=== PATIENT | female | born 1970 | race Caucasian/White ===

== ENCOUNTER 2018-02-12 15:20 | Inpatient (IN) | payer MEDICARE, OTHER ==
[2018-02-12] MEDS ORDERED: methylPREDNISolone SOD SUCCI 125 MG/2 ML VIAL IV STA ×2 (15:28→15:29)
[2018-02-12] MEDS ORDERED: IPRATROPIUM-ALBUTEROL 3 ML NEB INHALATION STA ×3 (15:28→15:43)
[2018-02-12] MEDS ORDERED: MAGNESIUM SULFATE-D5W PMX 1 GM in DEXTROSE/WATER 1 100ML.BAG IVPB STA (15:28)
[2018-02-12] MEDS ORDERED: SODIUM CHLORIDE 0.9% 1,000 ML IV STA (15:28)
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
[2018-02-12] MEDS ORDERED: diphenhydrAMINE 50 MG/ML 1 ML VIAL IVP STA (15:47)
[2018-02-12 15:58] LABS: Basophils # (A) 0.1 k/uL (0-0.2); Basophils % (A) 0 %; Eosinophils # (A) 0.2 k/uL (0-0.7); Eosinophils % (A) 1 %; HCT 44.8 % (34.0-46.0); HGB 14.6 gm/dL (11.4-16.0); Lymphocytes # (A) 2.3 k/uL (1.0-4.8); Lymphocytes % (A) 14 %; MCH 29.7 pg (25.0-35.0); MCHC 32.7 g/dL (31.0-37.0); MCV 90.7 fL (80.0-100.0); Mean Platelet Volume 7.4; Monocytes # (A) 1.1 k/uL (0-1.0); Monocytes % (A) 6 %; Neutrophils % (A) 77 %; Platelet Count 242 k/uL (150-450); RBC 4.93 m/uL (3.80-5.40); RDW 14.2 % (11.5-15.5)
[2018-02-12 16:13] LABS: INR 0.9 (<1.2); Partial Thromboplastin Time 21.9 sec (22.0-30.0); Prothrombin Time 9.8 sec (9.0-12.0)
[2018-02-12 16:14] LABS: Albumin 4.1 g/dL (3.5-5.0); Calcium 9.7 mg/dL (8.4-10.2); Creatine Kinase 257 U/L (30-135); Potassium 4.1 mmol/L (3.5-5.1); Total Bilirubin 0.3 mg/dL (0.2-1.3); Total Protein 6.9 g/dL (6.3-8.2)
[2018-02-12 16:26] LABS: Creatine Kinase MB 7.2 ng/mL (0.0-2.4); Troponin I <0.012 ng/mL (0.000-0.034)
[2018-02-12] MEDS ORDERED: HEPARIN SODIUM,PORCINE 5,000 UNIT/ML 1 ML VIAL IV STA (17:29)
[2018-02-12] MEDS ORDERED: LORazepam 2 MG/ML INJ IV STA ×2 (17:39→20:55)
[2018-02-12] MEDS ORDERED: KETOROLAC 30 MG/ML 1 ML VIAL IVP STA (17:40)
--- NOTE | 2018-02-12 17:48 | XR ---
EXAMINATION TYPE: XR chest 2V DATE OF EXAM: 02/12/2018 COMPARISON: 11/27/2016 HISTORY: 48-year-old female shortness of breath, difficulty breathing TECHNIQUE: PA and lateral views FINDINGS: The heart is normal size. Aorta and pulmonary vasculature within normal limits. Mild interstitial pro minence is unchanged. Calcified granuloma redemonstrated posterior right midlung IMPRESSION: Prior granulomatous disease. Chronic changes without acute cardiopulmonary process.
[2018-02-12] MEDS ORDERED: ACETAMINOPHEN TAB 325 MG TAB PO PRN (18:20)
[2018-02-12] MEDS ORDERED: NALOXONE 0.4 MG/ML 1 ML VIAL IV PRN (18:20)
[2018-02-12] MEDS ORDERED: AZITHROMYCIN 500 MG in SODIUM CHLORIDE 0.9% 250 ML IVPB STA (18:26)
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
[2018-02-12] MEDS: IPRATROPIUM-ALBUTEROL 3 ML NEB INHALATION SCH (20:16)
[2018-02-12] MEDS: methylPREDNISolone SOD SUCCI 125 MG/2 ML VIAL IV SCH ×2 (20:32→22:57)
[2018-02-12] MEDS: SODIUM CHLORIDE 0.9% 1,000 ML IV SCH (20:35)
[2018-02-12] MEDS: HEPARIN SOD,PORK IN 0.45% NACL 25,000 UNIT in 0.45% NACL 1 250ML.BAG IV SCH (20:39)
[2018-02-12] MEDS: MORPHINE SULFATE 2 MG/ML SYRINGE IVP PRN (21:08)
[2018-02-12] MEDS: FLUTICASONE 50MCG/SPRAY NASAL 16GM EA NOSTRIL SCH (22:50)
[2018-02-12] MEDS: LORATADINE 10 MG TAB PO SCH (22:56)
[2018-02-12] MEDS: MONTELUKAST 10 MG TAB PO SCH (22:57)
[2018-02-12 23:25] VITALS: BMI 29.0
[2018-02-13] MEDS: IPRATROPIUM-ALBUTEROL 3 ML NEB INHALATION SCH ×6 (00:42→20:19)
[2018-02-13] MEDS: ALPRAZolam 0.5 MG TAB PO PRN ×3 (01:10→08:31)
[2018-02-13] MEDS: MORPHINE SULFATE 2 MG/ML SYRINGE IVP PRN ×7 (01:11→22:55)
[2018-02-13] MEDS ORDERED: ALBUTEROL NEBULIZED 2.5 MG/3 ML INHALATION STA (01:34)
[2018-02-13] MEDS ORDERED: IPRATROPIUM 0.5 MG/2.5 ML NEBU INHALATION STA (01:35)
[2018-02-13 04:46] LABS: Glucose,Whole Blood 182 mg/dL (75-99)
[2018-02-13] MEDS: INSULIN ASPART 100 UNIT/ML 1 ML 10 ML VIAL SQ SCH ×4 (06:07→20:21)
[2018-02-13] MEDS: methylPREDNISolone SOD SUCCI 125 MG/2 ML VIAL IV SCH ×4 (06:08→22:56)
[2018-02-13] MEDS: SODIUM CHLORIDE 0.9% 1,000 ML IV SCH ×3 (06:11→22:55)
[2018-02-13] MEDS: traMADol 50 MG TAB PO PRN ×3 (08:46→21:06)
[2018-02-13 08:49] LABS: ABG Base Excess -6.6 mmol/L; ABG HCO3 20 mmol/L (21-25); ABG Oxygen Saturation 99.5 % (94-97); ABG PCO2 39 mmHg (35-45); ABG PH 7.31 (7.35-7.45); ABG PO2 120 mmHg (83-108); ABG TCO2 21 mmol/L (19-24)
--- NOTE | 2018-02-13 09:11 | XR ---
EXAMINATION TYPE: XR chest 1V portable DATE OF EXAM: 02/13/2018 Comparison: 02/12/2018 Clinical History: 48-year-old female shortness of breath, difficulty in breathing Findings: Heart upper limits of normal in size. Mild interstitial prominence. Calcified granuloma right upper t o mid lung. No consolidation or sizable effusion. Impression: Borderline heart size, possibly accentuated due to AP technique. Chronic changes, possible underlying COPD. Prior granulomatous disease. No acute change seen.
[2018-02-13] MEDS: FLUTICASONE 50MCG/SPRAY NASAL 16GM EA NOSTRIL SCH ×2 (09:56→21:07)
[2018-02-13] MEDS: AZITHROMYCIN 250 MG TAB PO SCH (09:56)
[2018-02-13] MEDS: LISINOPRIL-HCTZ 20-25 MG 1 EACH TAB PO SCH (09:56)
[2018-02-13] MEDS: LORATADINE 10 MG TAB PO SCH (09:56)
[2018-02-13 10:20] LABS: HCT 43.6 % (34.0-46.0); MCH 29.9 pg (25.0-35.0); MCHC 32.2 g/dL (31.0-37.0); MCV 92.9 fL (80.0-100.0); Mean Platelet Volume 8.8; Platelet Count 240 k/uL (150-450); RBC 4.69 m/uL (3.80-5.40); RDW 14.4 % (11.5-15.5); WBC 19.9 k/uL (3.8-10.6)
[2018-02-13 10:48] LABS: Calcium 9.5 mg/dL (8.4-10.2)
[2018-02-13] MEDS: MULTIVITAMINS, THERA 1 EACH TAB PO SCH (11:49)
[2018-02-13 12:09] LABS: Glucose,Whole Blood 144 mg/dL (75-99)
[2018-02-13] MEDS: HEPARIN SOD,PORK IN 0.45% NACL 25,000 UNIT in 0.45% NACL 1 250ML.BAG IV SCH ×2 (12:50→22:55)
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
--- NOTE | 2018-02-13 14:54 | P.PN ---
Subjective Progress Note Date: 02/13/18 (delayed charting seen at 0830) Principal diagnosis: Shortness of breath Patient is a 48-year-old female with a history of severe ALLERGIC asthma, prior aspergillosis and legionnaires disease, closed head injury 2, and hypertension who presented to the ER with complaints of shortness of breath. She does have a history of prior intubation for acute exacerbation of asthma 2017. In the ER she shortness of breath. She received multiple breathing treatments, IV Solu-Medrol, and pain medications without improvement. Therefore requested admission. Initial vital signs showed persistent tachycardia. Initial laboratory analysis showed an elevated white blood cell count at 17. Her d-dimer was slightly elevated at 0.88 however creatinine is 1.06. There was concern about exposing her to contrast dye with her history of chronic kidney disease. She is placed on a heparin drip and a VQ scan has been ordered. Arrangements were made for admission. She was admitted to the [facility] care for her. On the morning of 02/13 she again developed significant shortness breath. She was placed on BiPAP. I ordered a stat ABG which was normal. BiPAP was held. She is given a dose of morphine and Xanax. Patient seen and examined at bedside. BiPAP is on and she is crying she can't handle BiPAP. We assessed her ABG which was normal. Patient states she is anxious. She is complaining of rib pain. She received a dose of morphine and Xanax was in route to see patient. She is feeling anxious. She is requesting morphine with the Benadryl or Vistaril as a chaser. Discussed using tramadol to help with her pain and she just received an IV dose of pain medications as well as Banex. She tells me that tramadol is an anti-psychotic and not pain. I reassured her that this medication is indicated for pain and does not have an indication for psychiatric use. I have encouraged her to use the tramadol. She also states that she cannot take hydrocodone as it makes her nauseous in the oral version but she needs IV hydrocodone. We discussed no additional IV pain medications at this time, as she received IV morphine and I do not want to risk respiratory depression at this point in time. I have also tried to talk with her about calling down to decrease her breathing. Patient appears dyspneic however when she talks her wheezing resolved and her dyspnea drastically improves. Then when she stops talking becomes anxious again her dyspnea worsens. I told her we will consult pulmonary continue her current treatments Objective - Vital Signs Vital signs: Vital Signs Temp 96.5 F L 02/13/18 08:20 Pulse 106 H 02/13/18 12:00 Resp 28 H 02/13/18 12:00 BP 157/70 02/13/18 12:00 Pulse Ox 97 02/13/18 12:00 Intake & Output 02/12/18 02/13/18 02/13/18 18:59 06:59 18:59 Intake Total 946.568 229.947 Output Total 250 300 Balance 696.568 -70.053 Weight 81.647 kg 78 kg Intake: Intake, IV Titration 706.568 129.947 Amount Azithromycin 500 mg In 250 Sodium Chloride 0.9% 250 ml @ 250 mls/hr IVPB ONCE STA Rx#:[id number] Heparin Sod,Pork in 0.45% 136.568 129.947 NaCl 25,000 unit In 0.45 % NaCl 1 250ml.bag @ 18 UNITS/KG/HR 14.69 mls/hr IV .Q17H2M [facility] Rx#: [id number] Sodium Chloride 0.9% 1, 320 000 ml @ 80 mls/hr IV . [id number] [facility] Rx#:[id number] Oral 240 100 Output: Urine 250 300 Other: Voiding Method Diaper Diaper - Exam General: non toxic, moderate distress, appears at stated age Derm: warm, dry Head: atraumatic, normocephalic, symmetric Eyes: EOMI, no lid lag, anicteric sclera Mouth: no lip lesion, mucus membranes moist Cardiovascular: S1S2 reg, no murmur, positive posterior tibial pulse bilateral, Lungs: upper airway wheeze b/l with r apex wheeze, no rhonchi, no rales , + accessory muscle use Abdominal: soft, nontender to palpation, no guarding, no appreciable organomegaly Ext: no gross muscle atrophy, no edema, no contractures Neuro: CN II-XI grossly intact, no focal neuro deficits Psych: Alert, oriented, anxious and tearful - Labs CBC & Chem 7: 02/13/18 08:59 02/13/18 08:59 Labs: Abnormal Lab Results - Last 24 Hours (Table) 02/12/18 02/12/18 02/12/18 Range/Units 15:45 15:45 15:45 WBC 17.0 H (3.8-10.6) k/uL Neutrophils # 13.0 H (1.3-7.7) k/uL Monocytes # 1.1 H (0-1.0) k/uL APTT (22.0-30.0) sec D-Dimer (<0.60) mg/L FEU ABG pH (7.35-7.45) ABG pO2 (83-108) mmHg ABG HCO3 (21-25) mmol/L ABG O2 Saturation (94-97) % Chloride 110 H (98-107) mmol/L Carbon Dioxide (22-30) mmol/L BUN 21 H (7-17) mg/dL Creatinine 1.06 H (0.52-1.04) mg/dL Glucose 105 H (74-99) mg/dL POC Glucose (mg/dL) (75-99) mg/dL Total Creatine Kinase 257 H (30-135) U/L CK-MB (CK-2) 7.2 H (0.0-2.4) ng/mL 02/12/18 02/12/18 02/13/18 Range/Units 15:45 15:45 01:54 WBC (3.8-10.6) k/uL Neutrophils # (1.3-7.7) k/uL Monocytes # (0-1.0) k/uL APTT 21.9 L 91.8 H (22.0-30.0) sec D-Dimer 0.88 H (<0.60) mg/L FEU ABG pH (7.35-7.45) ABG pO2 (83-108) mmHg ABG HCO3 (21-25) mmol/L ABG O2 Saturation (94-97) % Chloride (98-107) mmol/L Carbon Dioxide (22-30) mmol/L BUN (7-17) mg/dL Creatinine (0.52-1.04) mg/dL Glucose (74-99) mg/dL POC Glucose (mg/dL) (75-99) mg/dL Total Creatine Kinase (30-135) U/L CK-MB (CK-2) (0.0-2.4) ng/mL 02/13/18 02/13/18 02/13/18 Range/Units 04:45 08:44 08:59 WBC 19.9 H (3.8-10.6) k/uL Neutrophils # (1.3-7.7) k/uL Monocytes # (0-1.0) k/uL APTT (22.0-30.0) sec D-Dimer (<0.60) mg/L FEU ABG pH 7.31 L (7.35-7.45) ABG pO2 120 H (83-108) mmHg ABG HCO3 20 L (21-25) mmol/L ABG O2 Saturation 99.5 H (94-97) % Chloride (98-107) mmol/L Carbon Dioxide (22-30) mmol/L BUN (7-17) mg/dL Creatinine (0.52-1.04) mg/dL Glucose (74-99) mg/dL POC Glucose (mg/dL) 182 H (75-99) mg/dL Total Creatine Kinase (30-135) U/L CK-MB (CK-2) (0.0-2.4) ng/mL 02/13/18 02/13/18 02/13/18 Range/Units 08:59 08:59 11:47 WBC (3.8-10.6) k/uL Neutrophils # (1.3-7.7) k/uL Monocytes # (0-1.0) k/uL APTT 65.3 H (22.0-30.0) sec D-Dimer (<0.60) mg/L FEU ABG pH (7.35-7.45) ABG pO2 (83-108) mmHg ABG HCO3 (21-25) mmol/L ABG O2 Saturation (94-97) % Chloride (98-107) mmol/L Carbon Dioxide 16 L (22-30) mmol/L BUN 20 H (7-17) mg/dL Creatinine 1.24 H (0.52-1.04) mg/dL Glucose 117 H (74-99) mg/dL POC Glucose (mg/dL) 144 H (75-99) mg/dL Total Creatine Kinase (30-135) U/L CK-MB (CK-2) (0.0-2.4) ng/mL Assessment and Plan Assessment: Acute exacerbation of asthma with acute respiratory failure and acute bronchitis - bronchodilators, steroids, pulm hygiene - pulm recs appreciated - flonase, claritin - s/p magnesium - CXR with no acute process, ABD within normal Costochondiritis - morphine, tramadol, adverse reaction to norco Acute anxiety - prn xanax TID Leukocytosis - repeat in AM - Maybe due to recent steroids - procalcitonin pending - zithromax for bronchitis coverage SIRS -Due to respiratory failure, no sign of clinical sepsis -Check procalcitonin Eelvated d-dimer - heparin gtt - VQ scan avoid CTA with hx of Contrast induced nephropathy CKD II/III - Cr at bseline - avoid nephrotoxic agents - repeat BMP in AM HTN urgency, resolved, HTN - follow BP - Continue home lisinopril/HCTZ Over weight BMI 29.1 - outpatient weight loss DVT prophylaxis: Heparin gtt Discussed with: Patient, nursing, Kandice Gilbert Anticipated discharge date: 1-[address]: home A total of 35 minutes was spent on the care of this complex patient more than 50 % of the time was spent in counseling and care coordination.
[2018-02-13] MEDS: ALPRAZolam 1 MG TAB PO PRN ×2 (15:23→20:20)
[2018-02-13] MEDS: ALBUTEROL NEBULIZED 2.5 MG/3 ML INHALATION PRN (17:35)
[2018-02-13 17:54] LABS: Glucose,Whole Blood 119 mg/dL (75-99)
[2018-02-13] MEDS: MONTELUKAST 10 MG TAB PO SCH (20:20)
[2018-02-13] MEDS: MELATONIN 3 MG TABLET PO PRN (21:07)
[2018-02-14] MEDS: IPRATROPIUM-ALBUTEROL 3 ML NEB INHALATION SCH ×7 (00:26→23:31)
[2018-02-14] MEDS: MORPHINE SULFATE 2 MG/ML SYRINGE IVP PRN ×6 (02:49→23:25)
[2018-02-14] MEDS: traMADol 50 MG TAB PO PRN ×3 (02:50→20:28)
[2018-02-14] MEDS: ALPRAZolam 1 MG TAB PO PRN ×3 (03:59→21:28)
[2018-02-14] MEDS: INSULIN ASPART 100 UNIT/ML 1 ML 10 ML VIAL SQ SCH ×4 (05:41→21:20)
[2018-02-14 06:16] LABS: HCT 41.7 % (34.0-46.0); HGB 12.9 gm/dL (11.4-16.0); Hypochromasia Slight; MCH 29.2 pg (25.0-35.0); MCV 94.1 fL (80.0-100.0); Mean Platelet Volume 7.5; Platelet Count 224 k/uL (150-450); RBC 4.43 m/uL (3.80-5.40); RDW 14.3 % (11.5-15.5); WBC 24.6 k/uL (3.8-10.6)
[2018-02-14 06:26] LABS: Calcium 9.6 mg/dL (8.4-10.2)
[2018-02-14 06:30] LABS: Magnesium 2.1 mg/dL (1.6-2.3); Potassium 4.5 mmol/L (3.5-5.1)
[2018-02-14] MEDS: methylPREDNISolone SOD SUCCI 125 MG/2 ML VIAL IV SCH ×4 (06:43→23:24)
[2018-02-14] MEDS: SODIUM CHLORIDE 0.9% 1,000 ML IV SCH ×2 (07:29→18:05)
[2018-02-14] MEDS: MULTIVITAMINS, THERA 1 EACH TAB PO SCH (08:43)
[2018-02-14] MEDS: HEPARIN SOD,PORK IN 0.45% NACL 25,000 UNIT in 0.45% NACL 1 250ML.BAG IV SCH (08:44)
[2018-02-14] MEDS: LORATADINE 10 MG TAB PO SCH (08:44)
[2018-02-14] MEDS: FLUTICASONE 50MCG/SPRAY NASAL 16GM EA NOSTRIL SCH ×2 (08:44→23:25)
[2018-02-14] MEDS: LISINOPRIL-HCTZ 20-25 MG 1 EACH TAB PO SCH (08:44)
[2018-02-14] MEDS: AZITHROMYCIN 250 MG TAB PO SCH (08:44)
[2018-02-14 09:55] LABS: Hemoglobin A1C 5.1 % (4.0-6.0)
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
[2018-02-14] MEDS: PANTOPRAZOLE 40 MG TABLET PO SCH (11:09)
[2018-02-14 12:16] LABS: Glucose,Whole Blood 156 mg/dL (75-99)
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
[2018-02-14] MEDS ORDERED: CALCIUM CARBONATE 500 MG CHEWABLE PO PRN (14:00)
--- NOTE | 2018-02-14 15:08 | XR ---
EXAMINATION TYPE: XR chest 1V portable DATE OF EXAM: 02/14/2018 COMPARISON: 02/13/2018 HISTORY: Shortness of breath TECHNIQUE: Single frontal view of the chest is obtained. FINDINGS: There is a nodule in the right upper lobe suggestive of granuloma. Limited inspiration. No consolidation or pneumothorax. No pleural effusion. Heart is within normal limits. No overt failure. Interstitium stable and likely chronic. IMPRESSION: 1. Findings suggestive of right upper lobe granuloma with no evidence of consolidative process.
--- NOTE | 2018-02-14 15:24 | P.PN ---
Progress Note - Text Progress Note Date: 02/14/18 Patient was seen on follow-up today, and she was noted to have a significant wheezing, however the wheezing seems to be mostly transmitted from the area of her neck. And as she was talking to me, the wheezing completely stopped. And her lungs sounded very clear. Then I raised the possibility of vocal cord dysfunction, and I explained to the patient that she needs to be seen by underwear trimmer and should have her vocal cords looked at and evaluated for possible vocal cord dysfunction. Patient became extremely upset, agitated, and was surprised that I'm questioning the diagnosis of asthma. Then she called her admitting physician/hospitalist, and requested another pulmonary opinion. I will gladly sign off the case and no need to follow-up in our office. I did suggest ENT evaluation I also suggested at bedside PFT to be done for further evaluation of her symptoms. We will sign off,, and the hospitalist will consult another dining room attendant to see the patient.
--- NOTE | 2018-02-14 16:46 | NM ---
EXAMINATION TYPE: NM pul vent and perfuse DATE OF EXAM: 02/14/2018 COMPARISON: Chest radiograph of the same date. HISTORY: Dyspnea with elevated d-dimer. TECHNIQUE: Utilizing inhalation of 68.5 mCi Tc 99m DTPA aerosol and intravenous injection of 4.9 mCi of Tc 99m MAA, ventilation and perfusion images are acquired post injection in multiple projections. FINDINGS: Although there is diffuse abnormal radiotracer activity throughout the lungs on the ventilation porti on of examination there is central radiotracer clumping limiting radiotracer dispersion throughout th e lungs and suggesting underlying airway disease. There is slightly prominent fissures on the perfusi on portions of the examination however no focal defects corresponding to pulmonary segments are seen on the perfusion images. IMPRESSION: Low probability for pulmonary embolus. Unremarkable perfusion images however ventilation images are d iffusely abnormal with findings indicating airway disease. Consider bronchitis and/or COPD.
[2018-02-14 17:31] LABS: Glucose,Whole Blood 148 mg/dL (75-99)
[2018-02-14] MEDS: SYMBICORT 160-4.5 MCG INHALER INHALATION SCH (19:56)
[2018-02-14] MEDS: SERTRALINE 25 MG TAB PO SCH (21:28)
[2018-02-14] MEDS: MONTELUKAST 10 MG TAB PO SCH (21:28)
[2018-02-14 21:38] LABS: Glucose,Whole Blood 107 mg/dL (75-99)
[2018-02-15] MEDS: HEPARIN SODIUM,PORCINE 5,000 UNIT/ML 1 ML VIAL SQ SCH ×4 (00:46→23:43)
[2018-02-15] MEDS: ALBUTEROL NEBULIZED 2.5 MG/3 ML INHALATION PRN ×4 (02:27→12:54)
[2018-02-15] MEDS: IPRATROPIUM-ALBUTEROL 3 ML NEB INHALATION SCH ×6 (04:04→23:40)
[2018-02-15] MEDS: SODIUM CHLORIDE 0.9% 1,000 ML IV SCH ×3 (06:08→17:37)
[2018-02-15] MEDS: MORPHINE SULFATE 2 MG/ML SYRINGE IVP PRN ×5 (06:09→23:42)
[2018-02-15] MEDS: methylPREDNISolone SOD SUCCI 125 MG/2 ML VIAL IV SCH ×4 (06:09→23:41)
[2018-02-15] MEDS: SYMBICORT 160-4.5 MCG INHALER INHALATION SCH ×2 (07:24→18:45)
[2018-02-15] MEDS: INSULIN ASPART 100 UNIT/ML 1 ML 10 ML VIAL SQ SCH ×4 (07:31→20:09)
[2018-02-15 07:37] LABS: Glucose,Whole Blood 125 mg/dL (75-99)
[2018-02-15] MEDS: LORATADINE 10 MG TAB PO SCH (08:06)
[2018-02-15] MEDS: PANTOPRAZOLE 40 MG TABLET PO SCH (08:06)
[2018-02-15] MEDS: MULTIVITAMINS, THERA 1 EACH TAB PO SCH (08:06)
[2018-02-15] MEDS: LISINOPRIL-HCTZ 20-25 MG 1 EACH TAB PO SCH (08:06)
[2018-02-15] MEDS: ALPRAZolam 1 MG TAB PO PRN ×3 (08:11→23:42)
[2018-02-15] MEDS: FLUTICASONE 50MCG/SPRAY NASAL 16GM EA NOSTRIL SCH ×2 (09:02→20:09)
[2018-02-15 09:28] LABS: HCT 45.9 % (34.0-46.0); HGB 14.2 gm/dL (11.4-16.0); MCH 29.1 pg (25.0-35.0); MCV 93.6 fL (80.0-100.0); Mean Platelet Volume 7.6; Platelet Count 244 k/uL (150-450); RDW 14.3 % (11.5-15.5); WBC 19.4 k/uL (3.8-10.6)
[2018-02-15 09:39] LABS: Potassium 4.1 mmol/L (3.5-5.1)
[2018-02-15 11:45] LABS: Glucose,Whole Blood 180 mg/dL (75-99)
--- NOTE | 2018-02-15 14:52 | XR ---
EXAMINATION TYPE: XR Hip Complete LT DATE OF EXAM: 02/15/2018 COMPARISON: NONE HISTORY: Pain post fall TECHNIQUE: 2 views submitted FINDINGS: There is no evidence of erosive change or acute fracture. IMPRESSION: 1. No evidence of acute fracture or dislocation.
--- NOTE | 2018-02-15 14:53 | XR ---
EXAMINATION TYPE: XR forearm LT DATE OF EXAM: 02/15/2018 COMPARISON: NONE HISTORY: Pain Two views of the forearm demonstrate that the osseous structures appear to be intact and the joint sp aces appear to be preserved. There is no acute fracture or dislocation. IMPRESSION: 1. No acute fracture or dislocation
--- NOTE | 2018-02-15 14:54 | XR ---
EXAMINATION TYPE: XR wrist limited LT DATE OF EXAM: 02/15/2018 CLINICAL HISTORY: Syncopal episode with fall and subsequent left wrist pain TECHNIQUE: Frontal, lateral and oblique images of the left wrist are obtained. COMPARISON: None FINDINGS: There is no acute fracture/dislocation evident in the left wrist. The joint spaces in the left wrist appear within normal limits. The overlying soft tissue appears unremarkable. External IV is noted dorsally over the metacarpals. IMPRESSION: There is no acute fracture or dislocation in the left wrist.
--- NOTE | 2018-02-15 14:58 | XR ---
EXAMINATION TYPE: XR ribs LT w pa chest xray DATE OF EXAM: 02/15/2018 COMPARISON: NONE HISTORY: Pain post fall TECHNIQUE: Frontal view of the chest and 4 views of the ribs are submitted. FINDINGS: There is a tiny granuloma in the left lower lobe. No acute displaced rib fracture identifie d. The lungs are otherwise clear. IMPRESSION: 1. No acute displaced rib fracture. There is a subtle defect involving the anterior left ninth rib wh ich may represent a hairline nondisplaced fracture. Correlate with point tenderness.
[2018-02-15] MEDS ORDERED: BENZONATATE 100 MG CAP PO PRN (15:40)
[2018-02-15] MEDS: KETOROLAC 30 MG/ML 1 ML VIAL IVP PRN (16:25)
[2018-02-15 17:30] LABS: Glucose,Whole Blood 150 mg/dL (75-99)
[2018-02-15] MEDS: guaiFENesin-DM 100-10MG/5ML 10 ML CUP PO PRN (18:37)
--- NOTE | 2018-02-15 18:49 | P.PN ---
Subjective Progress Note Date: 02/15/18 (delayed charting patient seen at 1030 and 1500) Principal diagnosis: Shortness of breath Patient is a 48-year-old female with a history of severe ALLERGIC asthma, prior aspergillosis and legionnaires disease, closed head injury 2, and hypertension who presented to the ER with complaints of shortness of breath. She does have a history of prior intubation for acute exacerbation of asthma 2017. In the ER she shortness of breath. She received multiple breathing treatments, IV Solu-Medrol, and pain medications without improvement. Therefore requested admission. Initial vital signs showed persistent tachycardia. Initial laboratory analysis showed an elevated white blood cell count at 17. Her d-dimer was slightly elevated at 0.88 however creatinine is 1.06. There was concern about exposing her to contrast dye with her history of chronic kidney disease. She is placed on a heparin drip and a VQ scan has been ordered. Arrangements were made for admission. She was admitted to the [facility] care for her. On the morning of 02/13 she again developed significant shortness breath. She was placed on BiPAP. I ordered a stat ABG which was normal. BiPAP was discontinued. She was given a dose of morphine and Xanax. She had improvement in her wheezing in lungs but still having upper airway wheeze. Initially patient was discharged the morning of 12/16. However she had a fall in the bathroom and increased pain. Patient seen and examined at bedside. Patient still feeling SOB and having increase respiratory rate when anxious. D/W her at length need for ENT follow- up and that she is having upper airway disfunction. She is insistent that she has asthma. We discussed at length that she may have asthma but at this point in time her lungs are clear at the bases that she continues to have an upper airway wheeze. We discussed that this may come from her prolonged cough and postnasal drip. 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 I've encouraged her next time to seek care in [place]. We also discussed having her follow-up with Dr. Moore in the outpatient setting for pulmonology she does not want with Dr. Montgomery. She reports that since experiencing her fall the bathroom she is having left-sided pain is increased under her ribs and she is also having some left-sided hip pain. She requests to continue to be on morphine during her hospitalization. She states that she is not able to go home due to her pain and she will not be able to climb a flight of stairs and her second floor apartment. I did discuss with her that her rib x-ray showed a possible deformity of the head of the ninth rib but did not show any displaced fracture. We'll do it however I'll of Toradol and maintain her morphine at this point in time to help with pain control. She is asking ASA 2 more days. I told her she will likely be discharged in the morning as long as her pain control is adequate. Objective - Vital Signs Vital signs: Vital Signs Temp 97.0 F L 02/15/18 15:00 Pulse 100 02/15/18 15:18 Resp 22 02/15/18 15:00 BP 140/84 02/15/18 15:00 Pulse Ox 94 L 02/15/18 15:00 Intake & Output 02/14/18 02/15/18 02/15/18 18:59 06:59 18:59 Intake Total 822 900 160 Output Total 800 Balance 22 900 160 Intake: IV 160 Sodium Chloride 0.9% 1, 160 000 ml @ 125 mls/hr IV . Q8H [facility] Rx#:[id number] Intake, IV Titration 250 Amount Heparin Sod,Pork in 0.45% 250 NaCl 25,000 unit In 0.45 % NaCl 1 250ml.bag @ 18 UNITS/KG/HR 14.69 mls/hr IV .Q17H2M [facility] Rx#: [id number] Oral 572 900 Output: Urine 800 Other: Voiding Method Diaper Diaper # Voids 1 2 4 - Exam General: non toxic, No distress, appears at stated age Derm: warm, dry Head: atraumatic, normocephalic, symmetric Eyes: EOMI, no lid lag, anicteric sclera Mouth: no lip lesion, mucus membranes moist Cardiovascular: S1S2 reg, no murmur, positive posterior tibial pulse bilateral, Lungs: faint wheeze right base, no rhonchi, no rales , no accessory muscle use, pain to palpation left rib cage and left hip Abdominal: soft, nontender to palpation, no guarding, no appreciable organomegaly Ext: no gross muscle atrophy, no edema, no contractures Neuro: CN II-XI grossly intact, no focal neuro deficits Psych: Alert, oriented, anxious,tearful - Labs CBC & Chem 7: 02/15/18 08:50 02/15/18 08:50 Labs: Abnormal Lab Results - Last 24 Hours (Table) 02/14/18 02/15/18 02/15/18 Range/Units 21:08 07:35 08:50 WBC 19.4 H (3.8-10.6) k/uL BUN (7-17) mg/dL Creatinine (0.52-1.04) mg/dL Glucose (74-99) mg/dL POC Glucose (mg/dL) 107 H 125 H (75-99) mg/dL 02/15/18 02/15/18 02/15/18 Range/Units 08:50 11:37 17:28 WBC (3.8-10.6) k/uL BUN 34 H (7-17) mg/dL Creatinine 1.32 H (0.52-1.04) mg/dL Glucose 117 H (74-99) mg/dL POC Glucose (mg/dL) 180 H 150 H (75-99) mg/dL Microbiology - Last 24 Hours (Table) 02/12/18 15:45 Blood Culture - Preliminary Blood No Growth after 72 hours 02/12/18 22:20 Blood Culture - Preliminary Blood No Growth after 48 hours Assessment and Plan Assessment: Acute exacerbation of asthma with acute respiratory failure - bronchodilators, steroids, pulm hygiene - pulm recs appreciated - flonase, claritin - s/p magnesium - CXR with no acute process, ABD within normal - need ENT eval for vocal cord dysfunction Possible left rib fracture - toradol in additional to morphine an zanaflex Fall - fall precautions Costochondiritis - morphine, tramadol, adverse reaction to norco, zanaflex Acute anxiety and depression - psych recs appreciated - zoloft at night Leukocytosis, improving - Maybe due to recent steroids - procalcitonin negative SIRS -Due to respiratory failure, no sign of clinical sepsis -Check procalcitonin CKD II/III - Cr at bseline - avoid nephrotoxic agents - repeat BMP in AM HTN urgency, resolved, HTN - follow BP - Continue home lisinopril/HCTZ Over weight BMI 29.1 - outpatient weight loss DVT prophylaxis: Heparin gtt Discussed with: Patient, nursing Anticipated discharge date: home in AM Anticipated discharge place: home A total of 35 minutes was spent on the care of this complex patient more than 50 % of the time was spent in counseling and care coordination.
[2018-02-15] MEDS: SERTRALINE 25 MG TAB PO SCH (19:46)
[2018-02-15] MEDS: MELATONIN 3 MG TABLET PO PRN (19:46)
[2018-02-15] MEDS: MONTELUKAST 10 MG TAB PO SCH (19:46)
[2018-02-16] MEDS: SODIUM CHLORIDE 0.9% 1,000 ML IV SCH ×3 (02:14→15:57)
[2018-02-16] MEDS: IPRATROPIUM-ALBUTEROL 3 ML NEB INHALATION SCH ×5 (03:28→20:11)
[2018-02-16] MEDS: MORPHINE SULFATE 2 MG/ML SYRINGE IVP PRN ×5 (03:50→20:30)
[2018-02-16] MEDS: methylPREDNISolone SOD SUCCI 125 MG/2 ML VIAL IV SCH (05:51)
[2018-02-16 07:05] LABS: Glucose,Whole Blood 135 mg/dL (75-99)
[2018-02-16] MEDS: guaiFENesin-DM 100-10MG/5ML 10 ML CUP PO PRN (08:10)
[2018-02-16] MEDS: HEPARIN SODIUM,PORCINE 5,000 UNIT/ML 1 ML VIAL SQ SCH ×3 (08:10→23:28)
[2018-02-16] MEDS: ALPRAZolam 1 MG TAB PO PRN ×3 (08:10→21:17)
[2018-02-16] MEDS: PANTOPRAZOLE 40 MG TABLET PO SCH (08:10)
[2018-02-16] MEDS: LISINOPRIL-HCTZ 20-25 MG 1 EACH TAB PO SCH (08:10)
[2018-02-16] MEDS: LORATADINE 10 MG TAB PO SCH (08:10)
[2018-02-16] MEDS: INSULIN ASPART 100 UNIT/ML 1 ML 10 ML VIAL SQ SCH ×4 (08:11→21:17)
[2018-02-16] MEDS: SYMBICORT 160-4.5 MCG INHALER INHALATION SCH ×2 (08:40→20:11)
[2018-02-16] MEDS: FLUTICASONE 50MCG/SPRAY NASAL 16GM EA NOSTRIL SCH ×2 (09:23→21:17)
[2018-02-16 11:29] LABS: Glucose,Whole Blood 232 mg/dL (75-99)
[2018-02-16] MEDS: POLYETHYLENE GLYCOL 3350 17 GM POWD.PACK PO SCH (12:10)
[2018-02-16] MEDS: MULTIVITAMINS, THERA 1 EACH TAB PO SCH (12:10)
[2018-02-16] MEDS: predniSONE 20 MG TAB PO SCH (12:10)
[2018-02-16 17:15] LABS: Glucose,Whole Blood 100 mg/dL (75-99)
--- NOTE | 2018-02-16 19:20 | P.PN ---
Subjective Progress Note Date: 02/16/18 Principal diagnosis: Shortness of breath Patient is a 48-year-old female with a history of severe ALLERGIC asthma, prior aspergillosis and legionnaires disease, closed head injury 2, and hypertension who presented to the ER with complaints of shortness of breath. She does have a history of prior intubation for acute exacerbation of asthma 2017. In the ER she shortness of breath. She received multiple breathing treatments, IV Solu-Medrol, and pain medications without improvement. Therefore requested admission. Initial vital signs showed persistent tachycardia. Initial laboratory analysis showed an elevated white blood cell count at 17. Her d-dimer was slightly elevated at 0.88 however creatinine is 1.06. There was concern about exposing her to contrast dye with her history of chronic kidney disease. She is placed on a heparin drip and a VQ scan has been ordered. Arrangements were made for admission. She was admitted to the [facility] care for her. On the morning of 02/13 she again developed significant shortness breath. She was placed on BiPAP. I ordered a stat ABG which was normal. BiPAP was discontinued. She was given a dose of morphine and Xanax. She had improvement in her wheezing in lungs but still having upper airway wheeze. Initially patient was discharged the morning of 12/16. However she had a fall in the bathroom and increased pain, possible left rib fracture. Patient seen and examined at bedside. Complains of increased left-sided pain since fall both her chest, hip, and knee. States she is still having wheezing when up and walking around but not at rest. Cough is improved. We discussed starting to transition off of the IV morphine and onto oral tramadol to see if that'll help. She insists that were all will not help but rather take IV morphine throughout the day today and then be discharged home on nothing tomorrow. Discussed that she will likely go tomorrow. Objective - Vital Signs Vital signs: Vital Signs Temp 97.8 F 02/16/18 07:00 Pulse 90 02/16/18 08:50 Resp 18 02/16/18 07:00 BP 135/77 02/16/18 07:00 Pulse Ox 92 L 02/16/18 07:00 Intake & Output 02/15/18 02/16/18 02/16/18 18:59 06:59 18:59 Intake Total 160 500 200 Balance 160 500 200 Intake: IV 160 Sodium Chloride 0.9% 1, 160 000 ml @ 125 mls/hr IV . Q8H [facility] Rx#:[id number] Oral 500 200 Other: Voiding Method Diaper # Voids 4 2 - Exam General: non toxic, No distress, appears at stated age Derm: warm, dry Head: atraumatic, normocephalic, symmetric Eyes: EOMI, no lid lag, anicteric sclera Mouth: no lip lesion, mucus membranes moist Cardiovascular: S1S2 reg, no murmur, positive posterior tibial pulse bilateral, Lungs: faint wheeze b/l base, large upper airway wheeze, no rhonchi, no rales , no accessory muscle use, pain to palpation left rib cage and left hip Abdominal: soft, nontender to palpation, no guarding, no appreciable organomegaly Ext: no gross muscle atrophy, no edema, no contractures Neuro: CN II-XI grossly intact, no focal neuro deficits Psych: Alert, oriented, anxious,tearful - Labs CBC & Chem 7: 02/15/18 08:50 02/15/18 08:50 Labs: Abnormal Lab Results - Last 24 Hours (Table) 02/15/18 02/15/18 02/16/18 Range/Units 11:37 17:28 07:03 POC Glucose (mg/dL) 180 H 150 H 135 H (75-99) mg/dL Microbiology - Last 24 Hours (Table) 02/12/18 22:20 Blood Culture - Preliminary Blood No Growth after 72 hours 02/12/18 15:45 Blood Culture - Preliminary Blood No Growth after 72 hours Assessment and Plan Assessment: Acute exacerbation of asthma with acute respiratory failure - bronchodilators, steroids, pulm hygiene - pulm recs appreciated, patient does not want to see Dr. Dowd anymore - flonase, claritin - s/p magnesium - CXR with no acute process, ABD within normal - need ENT eval for vocal cord dysfunctionbas outpatient Possible left rib fracture - toradol in additional to morphine an zanaflex Fall - fall precautions Costochondiritis - morphine, tramadol, adverse reaction to norco, zanaflex Acute anxiety and depression - psych recs appreciated - zoloft at night Leukocytosis, improving - Maybe due to recent steroids - procalcitonin negative CKD II/III - Cr at bseline - avoid nephrotoxic agents - repeat BMP in AM HTN urgency, resolved, HTN - follow BP - Continue home lisinopril/HCTZ Over weight BMI 29.1 - outpatient weight loss DVT prophylaxis: Heparin Discussed with: Patient, nursing Anticipated discharge date: home in AM Anticipated discharge place: home A total of 25 minutes was spent on the care of this complex patient more than 50 % of the time was spent in counseling and care coordination.
[2018-02-16 20:38] LABS: Glucose,Whole Blood 138 mg/dL (75-99)
[2018-02-16] MEDS: MONTELUKAST 10 MG TAB PO SCH (21:17)
[2018-02-16] MEDS: SERTRALINE 25 MG TAB PO SCH (21:17)
[2018-02-16] MEDS: KETOROLAC 30 MG/ML 1 ML VIAL IVP PRN (23:28)
[2018-02-17] MEDS: MORPHINE SULFATE 2 MG/ML SYRINGE IVP PRN ×5 (00:08→20:06)
[2018-02-17] MEDS: IPRATROPIUM-ALBUTEROL 3 ML NEB INHALATION SCH ×7 (00:41→23:13)
[2018-02-17] MEDS: SODIUM CHLORIDE 0.9% 1,000 ML IV SCH (03:38)
[2018-02-17] MEDS: ALPRAZolam 1 MG TAB PO PRN ×3 (04:33→21:21)
[2018-02-17 06:52] LABS: Glucose,Whole Blood 102 mg/dL (75-99)
[2018-02-17] MEDS: SYMBICORT 160-4.5 MCG INHALER INHALATION SCH ×2 (07:19→19:08)
[2018-02-17] MEDS: INSULIN ASPART 100 UNIT/ML 1 ML 10 ML VIAL SQ SCH ×4 (08:00→21:10)
[2018-02-17] MEDS: HEPARIN SODIUM,PORCINE 5,000 UNIT/ML 1 ML VIAL SQ SCH ×2 (08:01→17:25)
[2018-02-17] MEDS: LISINOPRIL-HCTZ 20-25 MG 1 EACH TAB PO SCH (08:01)
[2018-02-17] MEDS: MULTIVITAMINS, THERA 1 EACH TAB PO SCH (08:01)
[2018-02-17] MEDS: PANTOPRAZOLE 40 MG TABLET PO SCH (08:01)
[2018-02-17] MEDS: predniSONE 20 MG TAB PO SCH (08:01)
[2018-02-17] MEDS: LORATADINE 10 MG TAB PO SCH (08:01)
[2018-02-17] MEDS: POLYETHYLENE GLYCOL 3350 17 GM POWD.PACK PO SCH (08:02)
[2018-02-17] MEDS: FLUTICASONE 50MCG/SPRAY NASAL 16GM EA NOSTRIL SCH ×2 (08:10→21:20)
[2018-02-17 12:03] LABS: Glucose,Whole Blood 109 mg/dL (75-99)
--- NOTE | 2018-02-17 13:52 | P.PN ---
Subjective Progress Note Date: 02/17/18 Principal diagnosis: Shortness of breath Patient is a 48-year-old female with a history of severe ALLERGIC asthma, prior aspergillosis and legionnaires disease, closed head injury 2, and hypertension who presented to the ER with complaints of shortness of breath. She does have a history of prior intubation for acute exacerbation of asthma 2017. In the ER she shortness of breath. She received multiple breathing treatments, IV Solu-Medrol, and pain medications without improvement. Therefore requested admission. Initial vital signs showed persistent tachycardia. Initial laboratory analysis showed an elevated white blood cell count at 17. Her d-dimer was slightly elevated at 0.88 however creatinine is 1.06. There was concern about exposing her to contrast dye with her history of chronic kidney disease. She is placed on a heparin drip and a VQ scan has been ordered. Arrangements were made for admission. She was admitted to the [facility] care for her. On the morning of 02/13 she again developed significant shortness breath. She was placed on BiPAP. I ordered a stat ABG which was normal. BiPAP was discontinued. She was given a dose of morphine and Xanax. She had improvement in her wheezing in lungs but still having upper airway wheeze. Initially patient was discharged the morning of 12/16. However she had a fall in the bathroom and increased pain, possible left rib fracture. She struggled with pain control after this, she is allergic to vicodin, states ultram does not work and he only wants IV medications. Patient seen and examined at bedside. States that she is still having pain on the left side. She wants IV pain medications only d/w patient needs to start using oral medications as she will be leaving the hospital soon. States that she is now coughing things up but is till short of breath. No constipation. States she is not ready to go home as she is in too much pain and wont be able to climb the stairs to the second floor apartment. Again speech pattern normal without wheezing when talking and the becomes tachypnic with upper airway wheeze at rest. Objective - Vital Signs Vital signs: Vital Signs Temp 97.3 F L 02/17/18 06:15 Pulse 96 02/17/18 10:58 Resp 18 02/17/18 06:15 BP 147/77 02/17/18 06:15 Pulse Ox 94 L 02/17/18 06:15 Intake & Output 02/16/18 02/17/18 02/17/18 18:59 06:59 18:59 Intake Total 400 Output Total 400 Balance 0 Intake: Oral 400 Output: Urine 400 Other: Voiding Method Diaper # Voids 2 1 # Bowel Movements 0 - Exam General: non toxic, No distress, appears at stated age Derm: warm, dry Head: atraumatic, normocephalic, symmetric Eyes: EOMI, no lid lag, anicteric sclera Mouth: no lip lesion, mucus membranes moist Cardiovascular: S1S2 reg, no murmur, positive posterior tibial pulse bilateral, Lungs: wheeze bilateral, large upper airway wheeze, no rhonchi, no rales , no accessory muscle use, pain to palpation left rib cage and left hip Abdominal: soft, nontender to palpation, no guarding, no appreciable organomegaly Ext: no gross muscle atrophy, no edema, no contractures Neuro: CN II-XI grossly intact, no focal neuro deficits Psych: Alert, oriented, anxious,tearful - Labs CBC & Chem 7: 02/15/18 08:50 02/15/18 08:50 Labs: Abnormal Lab Results - Last 24 Hours (Table) 02/16/18 02/16/18 02/16/18 Range/Units 11:25 17:13 20:37 POC Glucose (mg/dL) 232 H 100 H 138 H (75-99) mg/dL 02/17/18 Range/Units 06:50 POC Glucose (mg/dL) 102 H (75-99) mg/dL Microbiology - Last 24 Hours (Table) 02/12/18 22:20 Blood Culture - Preliminary Blood No Growth after 96 hours 02/12/18 15:45 Blood Culture - Preliminary Blood No Growth after 96 hours Assessment and Plan Assessment: Acute exacerbation of asthma with acute respiratory failure - bronchodilators, steroids, pulm hygiene - pulm recs appreciated, patient does not want to see Dr. Dowd anymore outpatient follow-up with Dr. Moore - ofelia tolbert - s/p magnesium - CXR with no acute process, ABG within normal - need ENT eval for vocal cord dysfunctionbas outpatient Possible left rib fracture - toradol in additional to morphine an zanaflex Fall - fall precautions Costochondiritis - morphine, tramadol, adverse reaction to norco, zanaflex Acute anxiety and depression - psych recs appreciated - zoloft at night Leukocytosis, improving - Maybe due to recent steroids - procalcitonin negative CKD II/III - Cr at bseline - avoid nephrotoxic agents - repeat BMP in AM HTN urgency, resolved, HTN - follow BP - Continue home lisinopril/HCTZ Over weight BMI 29.1 - outpatient weight loss DVT prophylaxis: Heparin Discussed with: Patient, nursing Anticipated discharge date: home in AM Anticipated discharge place: home A total of 25 minutes was spent on the care of this complex patient more than 50 % of the time was spent in counseling and care coordination.
[2018-02-17 17:13] LABS: Glucose,Whole Blood 123 mg/dL (75-99)
[2018-02-17] MEDS: SERTRALINE 25 MG TAB PO SCH (21:21)
[2018-02-17] MEDS: MONTELUKAST 10 MG TAB PO SCH (21:21)
[2018-02-17 21:25] LABS: Glucose,Whole Blood 139 mg/dL (75-99)
[2018-02-18] MEDS: HEPARIN SODIUM,PORCINE 5,000 UNIT/ML 1 ML VIAL SQ SCH ×2 (00:44→08:12)
[2018-02-18] MEDS: MORPHINE SULFATE 2 MG/ML SYRINGE IVP PRN ×2 (01:33→08:14)
[2018-02-18] MEDS: IPRATROPIUM-ALBUTEROL 3 ML NEB INHALATION SCH ×3 (03:10→10:47)
[2018-02-18 06:04] VITALS: BP 153/88; RESP 17; TEMP 97.5
[2018-02-18] MEDS: SYMBICORT 160-4.5 MCG INHALER INHALATION SCH (06:56)
[2018-02-18 07:11] LABS: Glucose,Whole Blood 104 mg/dL (75-99)
[2018-02-18] MEDS: INSULIN ASPART 100 UNIT/ML 1 ML 10 ML VIAL SQ SCH (07:16)
[2018-02-18] MEDS: predniSONE 20 MG TAB PO SCH (08:12)
[2018-02-18] MEDS: LORATADINE 10 MG TAB PO SCH (08:12)
[2018-02-18] MEDS: PANTOPRAZOLE 40 MG TABLET PO SCH (08:12)
[2018-02-18] MEDS: MULTIVITAMINS, THERA 1 EACH TAB PO SCH (08:12)
[2018-02-18] MEDS: FLUTICASONE 50MCG/SPRAY NASAL 16GM EA NOSTRIL SCH (08:13)
[2018-02-18] MEDS: LISINOPRIL-HCTZ 20-25 MG 1 EACH TAB PO SCH (08:13)
[2018-02-18] MEDS: POLYETHYLENE GLYCOL 3350 17 GM POWD.PACK PO SCH (08:14)
[2018-02-18 11:03] VITALS: PULSE 82
--- NOTE | 2018-02-18 16:36 | P.DS ---
Providers Date of admission: 02/12/18 18:01 Expected date of discharge: 02/18/18 Attending physician: Mirella Vizcaino DO Consults: 02/14/18 09:45 Consult Physician Routine Consulting Provider: Mitch Hutton Consult Reason/Comments: Depression, passive thoughts of self harm Do you want consulting provider notified?: Yes Primary care physician: Physician Nonstaff Hospital Course: Discharge Diagnosis: Acute exacerbation of asthma Acute respiratory failure Probable left rib fracture Fall Costochondritis Acute anxiety and depression Leukocytosis CKD II/III Hypertensive urgency Overweight with BMI 29.1 Hospital Course: Patient is a 48-year-old female with a history of severe ALLERGIC asthma, prior aspergillosis and legionnaires disease, closed head injury 2, and hypertension who presented to the ER with complaints of shortness of breath. She does have a history of prior intubation for acute exacerbation of asthma 2016. In the ER she shortness of breath. She received multiple breathing treatments, IV Solu-Medrol, and pain medications without improvement. Therefore requested admission. Initial vital signs showed persistent tachycardia. Initial laboratory analysis showed an elevated white blood cell count at 17. Her d-dimer was slightly elevated at 0.88 however creatinine is 1.06. There was concern about exposing her to contrast dye with her history of chronic kidney disease. She is placed on a heparin drip and a VQ scan has been ordered. Arrangements were made for admission. She was admitted to the [facility] care for her. On the morning of 02/13 she again developed significant shortness breath. She was placed on BiPAP. I ordered a stat ABG which was normal. BiPAP was discontinued. She was given a dose of morphine and Xanax. She had improvement in her wheezing in lungs but still having upper airway wheeze. Initially patient was discharged the morning of 12/16. However she had a fall in the bathroom and increased pain, possible left rib fracture. She struggled with pain control after this, she is allergic to vicodin, states ultram does not work and he only wants IV medications. Her pain was better controlled overnight on 02/17 and she was determined stable for discharge home. She will complete a course of prednisone prednisone, Claritin, and Robitussin. She was started on Zoloft and recommendations of psychiatry and was given information on community mental health to arrange a follow-up. She was also given a prescription for Ultram and Zanaflex for her broken rib costochondritis. MAPS was reviewed on 02/16/18 and her only controlled substance filled within 6 months was Adderall. We had also suggest that she follow up with ENT for her upper airway dysfunction however patient adamantly refuses. She was given Dr. Peterson's number to set up with PCP and Dr. Virgen's number for pulmonary. Patient seen and examined at bedside. Still having some rib pain and side pain. Getting better. Breathing is much improved. Discussed with her taking tramadol and Zanaflex as needed for pain at home. Will not write for oral morphine. Vital signs reviewed and stable. General: non toxic, no distress, appears at stated age Derm: warm, dry Head: atraumatic, normocephalic, symmetric Eyes: EOMI, no lid lag, anicteric sclera Mouth: no lip lesion, mucus membranes moist Cardiovascular: S1S2 reg, no murmur, positive posterior tibial pulse bilateral, Lungs: Faint bilateral expiratory wheezes in bases, no rhonchi, no rales , no accessory muscle use-significant upper airway wheeze Abdominal: soft, nontender to palpation, no guarding, no appreciable organomegaly Ext: no gross muscle atrophy, no edema, no contractures Neuro: CN II-XI grossly intact, no focal neuro deficits Psych: Alert, oriented, appropriate affect A total of 35 minutes of time were spent preparing this complex discharge summary . Pertinent Studies: Left wrist x-ray-no acute fracture or dislocation Rib x-ray-no acute displaced rib fracture, subtle defect involving the anterior left ninth rib which may represent hairline nondisplaced fracture Left hip-no acute fracture or dislocation Left forearm-no acute fracture dislocation Patient Condition at Discharge: Stable Plan - Discharge Summary Discharge Rx Participant: No New Discharge Prescriptions: New Loratadine [Claritin] 10 mg PO DAILY #30 tab Pantoprazole [Protonix] 40 mg PO AC-BRKFST #30 tab predniSONE 40 mg PO DAILY #10 tab Sertraline [Zoloft] 25 mg PO HS #30 tab tiZANidine [Zanaflex] 2 mg PO TID PRN #9 tab PRN Reason: Muscle Spasm guaiFENesin-DM 100-10MG/5ML [Robitussin DM] 10 ml PO Q6H PRN cup PRN Reason: Cough traMADol HCl [Ultram] 50 mg PO Q6HR PRN 3 Days #12 tab PRN Reason: Pain Continue Albuterol Nebulized [Ventolin Nebulized] 2.5 mg INHALATION RT-QID PRN PRN Reason: Shortness Of Breath Lisinopril-Hctz 20-25 mg [Zestoretic 20-25] 1 tab PO DAILY Fluticasone Nasal Lolita [Flonase Nasal Lolita] 1 spray EA NOSTRIL BID Ipratropium Nebulized [Atrovent Nebulized 0.2 MG/ML] 0.5 mg INHALATION RT- QID PRN PRN Reason: Shortness Of Breath Montelukast [Singulair] 10 mg PO HS #30 tab Albuterol Inhaler [Ventolin Hfa Inhaler] 2 puff INHALATION RT-Q4H PRN #1 inhaler PRN Reason: Shortness Of Breath Fluticasone/Salmeterol [Advair 500-50 Diskus] 1 puff INHALATION RT-BID Discontinued Dextroamphetamine/Amphetamine [Adderall] 20 mg PO BID Discharge Medication List Albuterol Nebulized [Ventolin Nebulized] 2.5 mg INHALATION RT-QID PRN 11/26/16 [ History] Fluticasone Nasal Lolita [Flonase Nasal Lolita] 1 spray EA NOSTRIL BID 11/27/16 [ History] Ipratropium Nebulized [Atrovent Nebulized 0.2 MG/ML] 0.5 mg INHALATION RT-QID PRN 11/27/16 [History] Lisinopril-Hctz 20-25 mg [Zestoretic 20-25] 1 tab PO DAILY 11/27/16 [History] Albuterol Inhaler [Ventolin Hfa Inhaler] 2 puff INHALATION RT-Q4H PRN #1 inhaler 11/30/16 [Rx] Montelukast [Singulair] 10 mg PO HS #30 tab 11/30/16 [Rx] Fluticasone/Salmeterol [Advair 500-50 Diskus] 1 puff INHALATION RT-BID 02/12/18 [History] Loratadine [Claritin] 10 mg PO DAILY #30 tab 02/15/18 [Rx] Pantoprazole [Protonix] 40 mg PO AC-BRKFST #30 tab 02/15/18 [Rx] Sertraline [Zoloft] 25 mg PO HS #30 tab 02/15/18 [Rx] predniSONE 40 mg PO DAILY #10 tab 02/15/18 [Rx] tiZANidine [Zanaflex] 2 mg PO TID PRN #9 tab 02/15/18 [Rx] guaiFENesin-DM 100-10MG/5ML [Robitussin DM] 10 ml PO Q6H PRN cup 02/18/18 [Rx] traMADol HCl [Ultram] 50 mg PO Q6HR PRN 3 Days #12 tab 02/18/18 [Rx] Follow up Appointment(s)/Referral(s): Gerald Peterson MD [STAFF PHYSICIAN] - 02/22/18 3:30 pm [facility], [NON-STAFF] - 1 Week Nonstaff,Physician [Primary Care Provider] - 1-2 days Dileep Moore MD [STAFF PHYSICIAN] - 1 Week (Please call the office after 02/19/18 to make appt.) Patient Instructions/Handouts: COPD (Chronic Obstructive Pulmonary Disease) (DC ) Activity/Diet/Wound Care/Special Instructions: Contact [facility] in [place], , to have your account changed to the [facility] in [place], , as soon as possible after discharge to have your supplies managed locally. Regular diet Activity as tolerated Discharge Disposition: HOME SELF-CARE
== END 2018-02-18 11:58 | disposition home or self-care (01) | DRG 189 ==
LOC: EC 15:20 → 3SCARD 18:01 → 4MS4W 02-14 16:48
PROVIDERS: ADMIT Internal Medicine; ATTEND Internal Medicine
PROC: 5A09357 Assistance with Respiratory Ventilation, Less than 24 Consecutive Hours, Continuous Positive Airway Pressure (ICD-10-PCS; principal; 2018-02-12)
DX: J96.01 Acute respiratory failure with hypoxia (principal); S22.32XA Fracture of one rib, left side, initial encounter for closed fracture; J45.41 Moderate persistent asthma with (acute) exacerbation; J44.0 Chronic obstructive pulmonary disease with (acute) lower respiratory infection; J44.1 Chronic obstructive pulmonary disease with (acute) exacerbation; M94.0 Chondrocostal junction syndrome [Tietze]; N18.3 Chronic kidney disease, stage 3 (moderate); R32 Unspecified urinary incontinence; W19.XXXA Unspecified fall, initial encounter; Z68.29 Body mass index [BMI] 29.0-29.9, adult; I16.0 Hypertensive urgency; E66.3 Overweight; F06.4 Anxiety disorder due to known physiological condition; F32.9 Major depressive disorder, single episode, unspecified; F41.0 Panic disorder [episodic paroxysmal anxiety]; F41.1 Generalized anxiety disorder; F43.10 Post-traumatic stress disorder, unspecified; F90.9 Attention-deficit hyperactivity disorder, unspecified type; I12.9 Hypertensive chronic kidney disease with stage 1 through stage 4 chronic kidney disease, or unspecified chronic kidney disease; J20.9 Acute bronchitis, unspecified; R79.1 Abnormal coagulation profile; Z77.22 Contact with and (suspected) exposure to environmental tobacco smoke (acute) (chronic); Z79.899 Other long term (current) drug therapy; Z87.442 Personal history of urinary calculi; Z91.410 Personal history of adult physical and sexual abuse; Z92.21 Personal history of antineoplastic chemotherapy; Z87.820 Personal history of traumatic brain injury; Z86.19 Personal history of other infectious and parasitic diseases; Z87.01 Personal history of pneumonia (recurrent); Z88.1 Allergy status to other antibiotic agents; Z88.5 Allergy status to narcotic agent; Z88.2 Allergy status to sulfonamides
CPT/HCPCS: 36415; 36600; 71045; 71046; 73502; 78582; 80048; 80053; 82550; 82553; 82805; 83036; 83735; 83880; 84145; 84484; 85025; 85027; 85379; 85610; 85730; 87040; 93005; 94640; 94644; 94660; 94760; 96361; 96365; 96366; 96368; 96375; 96376; 99291